=== PATIENT | female | born 1965 ===

== ENCOUNTER 2020-06-05 19:00 | Outpatient (CLI) | payer OTHER | END 2020-06-05 19:01 | disposition home or self-care (01) | LOC: SLEEPLAB 19:00 | PROVIDERS: ATTEND Internal Medicine Pulmonary Disease | DX: G47.33 Obstructive sleep apnea (adult) (pediatric) (principal); R06.83 Snoring; E11.9 Type 2 diabetes mellitus without complications; E66.9 Obesity, unspecified; G47.00 Insomnia, unspecified | CPT/HCPCS: 95810 ==